=== PATIENT | male | born 1965 | race Caucasian/White ===

== ENCOUNTER 2018-02-04 18:03 | Inpatient (IN) | END 2018-02-18 18:50 | disposition home or self-care (01) | DRG 871 ==

== ENCOUNTER 2018-02-19 00:16 | Inpatient (IN) | END 2018-02-23 18:55 | disposition short-term general hospital (02) | DRG 442 ==

== ENCOUNTER 2018-11-21 18:09 | Emergency (ER) | payer OTHER ==
[~2018-11-21] VITALS: Ht 162.6 cm; Wt 96.3 kg
[~2018-11-21 18:09] MED LIST: ASPI-831 PO; ATOR20TA65 PO; CALC667C PO; DOCU-216 PO; HYDR-3601 PO; LACT20SO2 PO; PANT40TA4 PO; RIFA550T4 PO; [UNRECOGNIZED DRUG - CODE] MC; [UNRECOGNIZED DRUG - CODE] TOP
[2018-11-21 18:28] VITALS: Ht 162.6 cm; Wt 96.3 kg
[2018-11-21 22:15] VITALS: BP 115/60; PULSE 80; RESP 20
== END 2018-11-21 22:15 | disposition home or self-care (01) ==
LOC: E/R 18:09
DX: K72.90 Hepatic failure, unspecified without coma (principal); N18.6 End stage renal disease; K74.60 Unspecified cirrhosis of liver; Z76.0 Encounter for issue of repeat prescription; Z79.82 Long term (current) use of aspirin; Z99.2 Dependence on renal dialysis
CPT/HCPCS: 99283